=== PATIENT | male | born 1985 | race American Indian/Alaskan Native ===

== ENCOUNTER 2018-03-14 18:38 | Emergency (ER) | payer SELFPAY ==
[2018-03-14 19:00] VITALS: BMI 26.4
[2018-03-14 19:06] VITALS: RESP 18; TEMP 98.1
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
[2018-03-14] MEDS ORDERED: Sodium Chloride 0.9% 1,000 ML IV STA (19:24)
[2018-03-14 20:03] LABS: BASO # 0.02 K/mm3 (0.0-2.0); BASO % 0.2 % (0.0-3.0); EOS # 0.3 (0.0-0.7); EOS % 2.9 % (1.5-5.0); GRAN # 5.9 (1.4-6.5); GRAN % 61.6 % (50.0-68.0); HEMOGLOBIN 15.3 g/dL (14.0-18.0); LYMPH # 2.9 (1.2-3.4); LYMPH % 29.9 % (22.0-35.0); MEAN CELL VOLUME 80.7 fl (80.0-105.0); MEAN CORPUSCULAR HEMOGLOBIN 28.6 pg (25.0-35.0); MEAN CORPUSCULAR HGB CONC 35.4 g/dl (31.0-37.0); MEAN PLATELET VOLUME 10.3 fl (7.0-11.0); MONO # 0.5 (0.1-0.6); MONO % 5.4 % (1.0-6.0); RBC 5.35 10^6/uL (3.5-6.1); RED CELL DISTRIBUTION WIDTH 12.8 % (11.5-14.5); WHITE BLOOD COUNT 9.6 10^3/ul (4.5-11.0)
[2018-03-14 20:05] LABS: PROTHROMBIN TIME 11.4 SECONDS (9.4-12.5)
[2018-03-14 20:08] LABS: PARTIAL THROMBOPLASTIN TIME 33.8 Seconds (25.1-36.5)
[2018-03-14 20:10] LABS: ALB/GLOB RATIO 1.3 (1.1-1.8); ALBUMIN 4.7 g/dL (3.0-4.8); ALT/SGPT 23 U/L (7-56); AST/SGOT 21 U/L (17-59); BLOOD UREA NITROGEN 19 mg/dL (7-21); GFR AFRICAN-AMERICAN > 60; GFR NON-AFRICAN AMERICAN > 60
[2018-03-14 22:18] VITALS: BP 125/79; PULSE 70; O2SAT 100
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
== END 2018-03-14 21:52 | disposition home or self-care (01) ==
LOC: ED 18:38
DX: S09.90XA Unspecified injury of head, initial encounter (principal); S63.501D Unspecified sprain of right wrist, subsequent encounter; S73.102A Unspecified sprain of left hip, initial encounter; V03.00XA Pedestrian on foot injured in collision with car, pick-up truck or van in nontraffic accident, initial encounter; M54.2 Cervicalgia; M54.9 Dorsalgia, unspecified
CPT/HCPCS: 70450; 71046; 71260; 72125; 73110; 73503; 73552; 74177; 80053; 85025; 85610; 85730; 99284; J7030; Q9967

== ENCOUNTER 2018-07-22 22:07 | Emergency (ER) | payer SELFPAY ==
[2018-07-22 22:07] VITALS: BMI 26.4
[2018-07-22] MEDS ORDERED: Amoxicillin-Clav 875-125 mg Tab PO STA (23:04)
--- NOTE | 2018-07-22 23:48 | ED PDOC ---
Arrival/HPI - General Historian: Patient - History of Present Illness Narrative History of Present Illness (Text): 07/22/18 23:45 32yo male with no pmhx who present with complaint of right ear pain x 4days. States pain radiates to his temporal and jaw area. Did not take any medication for the pain. Denies fever, chills, drainage, trauma , sick contact. <Evy Gomez A - Last Filed: 07/22/18 23:45> <Reinaldo Petersen - Last Filed: 07/23/18 01:23> - General Chief Complaint: ENT Problem Time Seen by Provider: 07/22/18 22:51 Past Medical History - Provider Review Nursing Documentation Reviewed: Yes - Infectious Disease Hx of Infectious Diseases: None - Pulmonary Hx Asthma: Yes - Psychiatric Hx Substance Use: No <Evy Gomez A - Last Filed: 07/22/18 23:45> Family/Social History - Physician Review Nursing Documentation Reviewed: Yes Family/Social History: Unknown Family HX Smoking Status: Never Smoked Hx Alcohol Use: No Hx Substance Use: No <Evy Gomez A - Last Filed: 07/22/18 23:45> Allergies/Home Meds <Evy Gomez A - Last Filed: 07/22/18 23:45> <Reinaldo Petersen - Last Filed: 07/23/18 01:23> Allergies/Adverse Reactions: Allergies shrimp Adverse Reaction (Verified 03/14/18 19:00) ANAPHYLAXIS Home Medications: Home Meds Medication Instructions Recorded Confirmed Albuterol HFA [Ventolin HFA 90 1 puff IH PRN PRN 03/14/18 03/14/18 mcg/actuation (8 g)] Review of Systems - Physician Review All systems were reviewed & negative as marked: Yes - Review of Systems Constitutional: Normal Eyes: Normal ENT: Other (Right ear pain) Respiratory: Normal Cardiovascular: Normal Gastrointestinal: Normal Genitourinary Male: Normal Musculoskeletal: Normal Skin: Normal Neurological: Normal Endocrine: Normal Hemo/Lymphatic: Normal Psychiatric: Normal <Evy Gomez A - Last Filed: 07/22/18 23:45> Physical Exam Vital Signs Reviewed: Yes Temperature: Afebrile Blood Pressure: Normal Pulse: Regular Respiratory Rate: Normal Appearance: Positive for: Well-Appearing, Non-Toxic, Comfortable Pain Distress: None Mental Status: Positive for: Alert and Oriented X 3 - Systems Exam Head: Present: Atraumatic, Normocephalic Pupils: Present: PERRL Extroacular Muscles: Present: EOMI Conjunctiva: Present: Normal Ears: Present: Erythema (Right TM). No: TM Bulging, Fluid Mouth: Present: Moist Mucous Membranes Neck: Present: Normal Range of Motion Respiratory/Chest: Present: Clear to Auscultation, Good Air Exchange. No: Respiratory Distress, Accessory Muscle Use Cardiovascular: Present: Regular Rate and Rhythm, Normal S1, S2. No: Murmurs Abdomen: No: Tenderness, Distention, Peritoneal Signs Back: Present: Normal Inspection Upper Extremity: Present: Normal Inspection. No: Cyanosis, Edema Lower Extremity: Present: Normal Inspection. No: Edema Neurological: Present: GCS=15, CN II-XII Intact, Speech Normal Skin: Present: Warm, Dry, Normal Color. No: Rashes Psychiatric: Present: Alert, Oriented x 3, Normal Insight, Normal Concentration <Diru,Happiness A - Last Filed: 07/22/18 23:45> Vital Signs Temp Pulse Resp BP Pulse Ox 07/22/18 23:50 98.1 F 68 18 128/78 100 <Reinaldo Petersen - Last Filed: 07/23/18 01:23> Medical Decision Making - Medication Orders Current Medication Orders: Discontinued Medications Amoxicillin/Clavulanate Potassium (Augmentin 875 Mg-125 Mg Tab) 1 tab PO STAT STA; Protocol Stop: 07/22/18 23:05 Last Admin: 07/22/18 23:11 Dose: 1 tab Ibuprofen (Motrin Tab) 600 mg PO STAT STA Stop: 07/22/18 23:06 Last Admin: 07/22/18 23:11 Dose: 600 mg MAR Pain/Vitals Document 07/22/18 23:11 MARCIA (Rec: 07/22/18 23:11 MARCIA [id number]) Pain Reassessment Is This A Pain ReAssessment? Yes Presence of Pain Presence of Pain Yes Pain Scale Used Protocol: PSCALES Pain Scale Used Numeric Location Left, Right or Bilateral Right Pain Location Body Site Ear Description Acute <Diru,Happiness A - Last Filed: 07/22/18 23:45> - Medication Orders Current Medication Orders: Discontinued Medications Amoxicillin/Clavulanate Potassium (Augmentin 875 Mg-125 Mg Tab) 1 tab PO STAT STA; Protocol Stop: 07/22/18 23:05 Last Admin: 07/22/18 23:11 Dose: 1 tab Ibuprofen (Motrin Tab) 600 mg PO STAT STA Stop: 07/22/18 23:06 Last Admin: 07/22/18 23:11 Dose: 600 mg MAR Pain/Vitals Document 07/22/18 23:11 RG (Rec: 07/22/18 23:11 RG [id number]) Pain Reassessment Is This A Pain ReAssessment? Yes Presence of Pain Presence of Pain Yes Pain Scale Used Protocol: PSCALES Pain Scale Used Numeric Location Left, Right or Bilateral Right Pain Location Body Site Ear Description Acute <Reinaldo Petersen - Last Filed: 07/23/18 01:23> - PA / [employer] / Resident Statement / has reviewed & agrees with the documentation as recorded. <Reinaldo Petersen - Last Filed: 07/23/18 01:23> Disposition/Present on Arrival - Present on Arrival Any Indicators Present on Arrival: No History of DVT/PE: No History of Uncontrolled Diabetes: No Urinary Catheter: No History of Decub. Ulcer: No History Surgical Site Infection Following: None - Disposition Have Diagnosis and Disposition been Completed?: Yes Disposition Time: 23:50 Patient Plan: Discharge <Evy Gomez - Last Filed: 07/22/18 23:45> <Reinaldo Petersen - Last Filed: 07/23/18 01:23> - Disposition Diagnosis: Acute otitis media Disposition: HOME/ ROUTINE Condition: STABLE Discharge Instructions (ExitCare): Ear Infections (Otitis Media) (DC) Additional Instructions: Follow up with your Doctor/ENT Return to ED for any new or worsening symptoms Prescriptions: Amoxicillin/Clavulanate [Augmentin 875 MG-125 MG] 1 tab PO BID #14 tab Ibuprofen [Motrin Tab] 600 mg PO Q6 #15 tab Referrals: Krysten Turk MD [Medical Doctor] - Follow up with primary Forms: [employer] (Kyrgyz)
[2018-07-23 00:52] VITALS: BP 128/78; PULSE 68; RESP 18; TEMP 98.1; O2SAT 100
== END 2018-07-23 | disposition home or self-care (01) ==
LOC: ED 22:07
DX: H66.91 Otitis media, unspecified, right ear (principal)